=== PATIENT | male | born 1945 | race Two or more races ===

== ENCOUNTER 2025-06-25 09:04 | Inpatient (IN) | payer MEDICARE, MEDICAID ==
[~2025-06-25] VITALS: Ht 180.3 cm; Wt 71.4 kg
[2025-06-25 10:20] VITALS: PULSE 84; RESP 15; O2SAT 97
--- NOTE | 2025-06-25 11:18 | ED.PDOC ---
HPI Comments 79M BIBA w/ prior MHx of recent diagnosis of lung cancer and the c/c of generalized weakness. Pt reports on on being constipated, urinary retention and get's a jolt in his chest associated w/ generalized weakness s/p getting diagnosed w/ lung cancer. Denies any other symptoms at this time. Denies chills, fever, N/V/D, SOB, CP. Denies any other associated symptom's, modifiers, or recent injuries or sick contact at this time. Chief Complaint: General Weakness Time Seen by MD: 11:00 Reviewed Notes: Nurses Notes, Medications, Allergies Allergies: Coded Allergies: NO KNOWN ALLERGIES (Unverified , 06/25/25) Information Source: Patient Mode of Arrival: EMS Severity: Moderate Timing: Came on: Gradually Duration: Since onset Prehospital treatment: None Quality: Other (jolts) Onset: At Rest Cardiac Risk Factors: None PE Risk Factors: None History of: None Associated Signs and Symptoms: None Past Medical History PAST MEDICAL HISTORY: Cancer (Lung) Surgical History: Denies all surgeries Family History Family History: Reviewed,noncontributory to illness, Unknown Social History Smoker: Non-Smoker Alcohol: Denies ETOH Use Drugs: Denies Drug Use Lives In: Home Constitutional: reports: weakness; denies: chills, diaphoresis, fatigue, fever, malaise, sweats, others EENTM: denies: blurred vision, double vision, ear bleeding, ear discharge, ear drainage, ear pain, ear ringing, eye pain, eye redness, hearing loss, mouth pain, mouth swelling, nasal discharge, nose bleeding, nose congestion, nose pain, photophobia, tearing, throat pain, throat swelling, voice changes, others Respiratory: denies: cough, hemoptysis, orthopnea, SOB at rest, shortness of breath, SOB with excertion, stridor, wheezing, others Cardiovascular: reports: chest pain; denies: dizzy spells, diaphoresis, Dyspnea on exertion, edema, irregular heart beat, left arm pain, lightheadedness, palpitations, PND, syncope, others Gastrointestinal: reports: constipated; denies: abdomen distended, abdominal pain, blood streaked bowels, diarrhea, dysphagia, difficulty swallowing, hematemesis, melena, nausea, poor appetite, poor fluid intake, rectal bleeding, rectal pain, vomiting, others Genitourinary: reports: others (urinary retention); denies: burning, dysuria, flank pain, frequency, hematuria, incontinence, penile discharge, penile sore, pain, testicle pain, testicle swelling, urgency Neurological: denies: dizziness, fainting, headache, left sided numbness, left sided weakness, numbness, paresthesia, pre-existing deficit, right sided numbness, right sided weakness, seizure, speech problems, tingling, tremors, weakness, others Musculoskeletal: denies: back pain, gout, joint pain, joint swelling, muscle pain, muscle stiffness, neck pain, others Integumetry: denies: bruises, change in color, change in hair/nails, dryness, laceration, lesions, lumps, rash, wounds, others Allergic/Immunocompromised: denies: Difficulty Healing, Frequent Infections, Hives, Itching, others Hematologic/Lymphatic: denies: anemia, blood clots, easy bleeding, easy bruising, swollen glands, others Endocrine: denies: excessive hunger, excessive sweating, excessive thirst, excessive urination, flushing, intolerance to cold, intolerance to heat, unexplained weight gain, unexplained weight loss, others Psychiatric: denies: anxiety, bipolar disorder, depression, hopeless, panic disorder, schizophrenia, sleepless, suicidal, others All Other Systems: Reviewed and Negative Physical Exam General Appearance: Moderate Distress, Normal HEENT: Normal ENT Inspection, PERRL/EOMI, Pharynx Normal, TMs Normal Neck: Full Range of Motion, Non-Tender, Normal, Normal Inspection Respiratory: Chest Non-Tender, Decreased Breath Sounds, No Accessory Muscle Use, No Respiratory Distress, Rhonchi Cardiovascular: No Edema, No JVD, No Murmur, No Gallop, Normal Peripheral Pulses, Regular Rate/Rhythm Breast Exam: Deferred Gastrointestinal: No Organomegaly, No Pulsatile Mass, Normal Bowel Sounds, Soft, Suprapubic, Tenderness Genitalia: Deferred Pelvic: Deferred Rectal: Other (Patient unable to have a bowel movement) Extremities: Decreased range of motion, No calf tenderness, Normal capillary r efill, Normal inspection, Non-tender, No pedal edema Musculoskeletal : Apperance: Normal Neurologic: Alert, nursing service director II-XII nml as Tested, Depressed Affect, Motor Weakness, No Sensory Deficits Cerebellar Function: Normal Reflexes: Normal Skin: Dry, Normal Color, Warm Peripheral Pulses: 1+ carotid (R), 1+ carotid (L) Lymphatic: No Adenopathy EKG EKG : Pulse Rate (adult): 89 Corry: Normal Cardiac Rhythm: Afib Block: RBBB Hypertrophy: None ST: Normal Comments 1st EK AFIB, RBBB, LAFB Was a procedure done? 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 with the leg weakness X-Ray, Labs, Meds, VS Vital Signs Date Time Temp Pulse Resp B/P (MAP) Pulse Ox O2 Delivery O2 Flow Rate FiO2 06/25/25 13:36 95 16 136/95 06/25/25 11:19 89 06/25/25 10:20 97.5 84 15 150/90 (110) 97 97.5 06/25/25 10:20 84 15 97 Room Air* 0 21 06/25/25 09:15 89 06/25/25 09:09 98.2 96 16 153/107 100 98.2 Lab Test 06/25/25 11:38 Range/Units White Blood Count 9.6 4.4-10.8 10^3/uL Red Blood Count 5.03 4.5-5.90 10^6/uL Hemoglobin 14.5 13.5-17.5 g/dL Hematocrit 41.2 41.0-53.0 % Mean Corpuscular Volume 81.9 80.0-100.0 fL Mean Corpuscular Hemoglobin 28.9 28.0-32.0 pg Mean Corpuscular Hemoglobin Concent 35.2 32.0-36.0 g/dL Red Cell Distribution Width 15.1 H 11.8-14.3 % Platelet Count 367 140-450 10^3/uL Mean Platelet Volume 8.0 6.9-10.8 fL Neutrophils (%) (Auto) 80.6 H 37.0-80.0 % Lymphocytes (%) (Auto) 11.5 10.0-50.0 % Monocytes (%) (Auto) 6.6 0.0-12.0 % Eosinophils (%) (Auto) 1.0 0.0-7.0 % Basophils (%) (Auto) 0.3 0.0-2.0 % Neutrophils # (Auto) 7.7 1.6-8.6 10 ^3/uL Lymphocytes # (Auto) 1.1 0.4-5.4 10 ^3/uL Monocytes # (Auto) 0.6 0-1.3 10 ^3/uL Eosinophils # (Auto) 0.1 0-0.8 10 ^3/uL Basophils # (Auto) 0 0-0.2 10 ^3/uL Nucleated Red Blood Cells 0.1 % Sodium Level 135 L 136-145 mmol/L Potassium Level 4.5 3.5-5.1 mmol/L Chloride Level 100 98-107 mmol/L Carbon Dioxide Level 24 20-31 mmol/L Anion Gap 11 5-15 Blood Urea Nitrogen 15 9-23 mg/dL Creatinine 0.67 L 0.700-1.30 mg/dL Glomerular Filtration Rate Calc 95 >90 mL/min BUN/Creatinine Ratio 22.4 H 10.0-20.0 Serum Glucose 94 74-106 mg/dL Calcium Level 9.3 8.7-10.4 mg/dL Magnesium Level 2.2 1.6-2.6 mg/dL Total Bilirubin 1.0 0.2-1.0 mg/dL Aspartate Amino Transferase (AST) 20 13-40 U/L Alanine Aminotransferase (ALT) 19 7-40 U/L Alkaline Phosphatase 176 H 46-116 U/L Total Protein 7.2 5.7-8.2 g/dL Albumin 4.1 3.2-4.8 g/dL Current Medications Medications (Trade) Dose Ordered Sig/Romeo Route Start Time Stop Time Status Last Admin Sodium Chloride 1,000 ml @ 500 mls/hr Q2H ONCE IVB 06/25/25 11:15 06/25/25 13:14 DC 06/25/25 11:23 Sodium Chloride 1,000 ml @ 150 mls/hr Q6H40M ONCE IV 06/25/25 11:15 06/25/25 17:54 06/25/25 11:23 Sodium Biphosphate/ Sodium Phosphate 133 ml ONCE ONCE WA 06/25/25 11:15 06/25/25 11:16 DC 06/25/25 11:32 Morphine Sulfate 3 mg ONCE ONCE IV 06/25/25 13:30 06/25/25 13:31 DC 06/25/25 13:36 Ondansetron HCl (Zofran) 4 mg ONCE ONCE IV 06/25/25 13:30 06/25/25 13:31 DC 06/25/25 13:35 X-Ray, Labs, Meds, VS Comment Course in the emergency department eventful patient came in with a history of lung cancer seen not treated and generalized weakness patient can not urinate and neck and not have a bowel movement and also he can not walk from leg we akness from metastasis to lumbar spine CBC is normal Magnesium is 2.2 CMP is negative The EKG shows atrial fibrillation at 89 with a right bundle-branch block and left anterior fascicular block The chest x-ray shows right upper lobe opacity left retrocardiac opacity Patient will be admitted for further care Time of 1ST Reevaluation: 11:30 Reevaluation 1ST: Unchanged Patient Education/Counseling: Diagnosis, Treatment, Prognosis Family Education/Counseling: No Family Present SEPSIS Sepsis Screen Date sepsis recognized/suspect: Jun 25, 2025 Time Sepsis recognized/suspect: 908 Recent Procedure: No On Antibiotic Therapy: No Respiratory Rate >20: No Heart Rate >90: Yes Temp<36 C (96.8 F) or >38.3 C: No SBP <90 or MAP <65 mmHG: No New Acute Mental Status Change: No Is the patient on CPAP, BIPAP,: No Physician Orders Chest Portable (06/25/25 11:10) Heplock Iv (06/25/25 11:10) Blood Pressure (06/25/25 11:10) Sodium Chloride 0.9% (06/25/25 11:15) Urinalysis (06/25/25 11:10) Insert Mcconnell Catheter QSHIFT (06/25/25 11:10) Vital Signs Date Time Temp Pulse Resp B/P (MAP) Pulse Ox O2 Delivery O2 Flow Rate FiO2 06/25/25 13:36 95 16 136/95 06/25/25 11:19 89 06/25/25 10:20 97.5 84 15 150/90 (110) 97 97.5 06/25/25 10:20 84 15 97 Room Air* 0 21 06/25/25 09:15 89 06/25/25 09:09 98.2 96 16 153/107 100 98.2 Laboratory Tests Test 06/25/25 11:38 White Blood Count 9.6 10^3/uL (4.4-10.8) Medications Medications Dose Ordered Sig/Romeo Route Start Time Stop Time Status Last Admin Dose Admin Morphine Sulfate 3 mg ONCE ONCE IV 06/25/25 13:30 06/25/25 13:31 DC 06/25/25 13:36 Ondansetron HCl 4 mg ONCE ONCE IV 06/25/25 13:30 06/25/25 13:31 DC 06/25/25 13:35 Sodium Biphosphate/ Sodium Phosphate 133 ml ONCE ONCE WA 06/25/25 11:15 06/25/25 11:16 DC 06/25/25 11:32 Sodium Chloride 1,000 ml @ 150 mls/hr Q6H40M ONCE IV 06/25/25 11:15 06/25/25 17:54 06/25/25 11:23 Sodium Chloride 1,000 ml @ 500 mls/hr Q2H ONCE IVB 06/25/25 11:15 06/25/25 13:14 DC 06/25/25 11:23 Departure 1 Departure Time of Disposition: 14:47 Impression: Primary Impression: Lung cancer metastatic to bone Additional Impressions: Generalized weakness Urinary retention Disposition: ADMITTED INPATIENT Admit to: Tele Condition: Guarded Critical Care Note Critical Care Time?: No Stability Stability form required: Yes Heart Score Heart Score: Heart Score Response (Comments) Value History N/A 0 EKG Repolarization Disturb 1 Age >65 2 Risk Factors 1 or 2 risk factors 1 Troponin N/A 0 Total 4 I personally scribed for APOORVA CHINO MD ([email or web address]) on 06/25/25 at 11:18. Electronically submitted by Richard Hill ([email or web address]). I personally scribed for APOORVA CHINO MD ([email or web address]) on 06/25/25 at 11:19. Electronically submitted by Richard Hill ([email or web address]). APOORVA CHINO MD Jun 25, 2025 11:18
[2025-06-25] MEDS: SODIUM CHLORIDE 0.9% 1,000 ML IVB ONE (11:23)
[2025-06-25] MEDS: SODIUM CHLORIDE 0.9% 1,000 ML IV ONE (11:23)
[2025-06-25] MEDS: FLEET MINERAL OIL ENEMA 133 ML PR ONE (11:32)
--- NOTE | 2025-06-25 11:49 | DVH ---
EXAM: XY CHEST PORTABLE Indication: LUNG CA Technique: Single frontal view of the chest was obtained Comparison: CT CHEST WITHOUT on DOS: 06/16/25 FINDINGS: Lines and Tubes: None Lungs: Right upper lung opacity which may reflect scarring. Left retrocardiac opacity. Pleura: No effusion. No pneumothorax. Cardiomediastinal contours: Unremarkable. Atherosclerotic vascular calcifications of the thoracic aorta are noted. Bones: No acute osseous abnormality. IMPRESSION: Right upper lung opacity which may reflect scarring. Left retrocardiac opacity.
[2025-06-25 11:56] LABS: Hematocrit 41.2 % (41.0-53.0); Hemoglobin 14.5 g/dL (13.5-17.5); Mean Corpuscular Hemoglobin 28.9 pg (28.0-32.0); Mean Corpuscular Volume 81.9 fL (80.0-100.0); Nucleated Red Blood Cells % 0.1 %
[2025-06-25 12:20] LABS: Alanine Aminotransferase 19 U/L (7-40); Albumin 4.1 g/dL (3.2-4.8); Anion Gap 11 (5-15); BUN/Creatinine Ratio 22.4 (10.0-20.0); Blood Urea Nitrogen 15 mg/dL (9-23); Calcium 9.3 mg/dL (8.7-10.4); Carbon Dioxide 24 mmol/L (20-31); Chloride 100 mmol/L (98-107); Glucose 94 mg/dL (74-106); Magnesium 2.2 mg/dL (1.6-2.6); Potassium 4.5 mmol/L (3.5-5.1); Total Protein 7.2 g/dL (5.7-8.2)
[2025-06-25 12:21] LABS: Bilirubin, Total 1.0 mg/dL (0.2-1.0)
[2025-06-25 12:22] LABS: Alkaline Phosphatase 176 U/L (46-116); Sodium 135 mmol/L (136-145)
[2025-06-25] MEDS: ONDANSETRON HCL 4 MG/2 ML VIAL IV ONE (13:35)
[2025-06-25] MEDS: MORPHINE SULFATE 4 MG/ML SYR/VIAL IV ONE (13:36)
--- NOTE | 2025-06-25 14:36 | ECG ---
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
[2025-06-25 15:20] LABS: Urine Protein, UAD TRACE (Negative)
[2025-06-25] MEDS ORDERED: ONDANSETRON HCL 4 MG/2 ML VIAL IV PRN (16:45)
--- NOTE | 2025-06-25 16:49 | DVHHP2 ---
History of Present Illness Reason for Visit: Weakness History of Present Illness Lex Chan is a 79-year-old male with past medical history of lung cancer diagnosed 2 weeks ago, AFib on Eliquis, and appendectomy who presents to the ED weakness, constipation, and urinary retention that started 3 days ago. He is also reporting that he has back pain and was told by [facility] that he has a nodule versus tumor on his back as well as his lung. Reports that his bilateral lower extremities have been numb and weak. He reports he does not use a walker or cane however his uses a walker and he started using that and states that he is now unable to walk. He also reports that he went to [facility] was diagnosed recently with lung cancer then was sent a referral to [facility] in [place] followed up with demanded blood tests and imaging. Is set to go back for a follow up on July 05. 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 He reports that he has been compliant with his Eliquis for his AFib. He also endorses that in his history he was advised to get a pacemaker however received a 2nd opinion and that director of global talent advised him that he did not need a pacemaker placed. Patient denies any recent trauma or injury, recent sick contacts, recent travels, recent ingestion of spoiled food, chest pain, shortness of breath, fever, chills, dizziness, abdominal pain, nausea, vomiting, or diarrhea. Patient's Fara at the bedside. Patient's also states that he has been taking Dilaudid p.o. 2 mg every 6 hours as needed for pain in his back. Cardiovascular: AFIB Past Medical History ? Lung cancer Past Surgical History: Appendectomy Family History: Cancer, Other (Brother from lymph node cancer) Smoke: No ALCOHOL: none Drugs: None Lives: with Family Domestic Violence: Neg Review of Systems Constitutional: Yes: Weakness Gastrointestinal: Constipation Musculoskeletal: leg pain Neurological: Numbness Allergies: Coded Allergies: NO KNOWN ALLERGIES (Unverified , 06/25/25) Exam Vital Signs Vital Signs Date Time Temp Pulse Resp B/P (MAP) Pulse Ox O2 Delivery O2 Flow Rate FiO2 06/25/25 14:50 94 25 151/88 06/25/25 14:50 98 06/25/25 10:20 97.5 97.5 06/25/25 10:20 Room Air* 0 21 General Appearance: Alert, Oriented X3, Cooperative, No acute distress HEENT: Atraumatic, PERRLA, EOMI, Mucous membr. moist/pink Respiratory: Normal air movement Cardiovascular: Regular rate, Normal S1, Normal S2 Abdominal: Soft Neuro: Normal speech, Normal tone, Sensation intact Psych/Mental Status: Mental status NL, Mood NL Labs/Xrays Labs Test 06/25/25 14:57 06/25/25 11:38 Range/Units Urine Color Yellow Yellow Urine Clarity Clear Clear Urine pH 6.0 5.0-9.0 Urine Specific [place] 1.027 1.001-1.035 Urine Protein Trace H Negative Urine Ketones 1+ H Negative Urine Blood Trace H Negative /uL Urine Nitrite Negative Negative Urine Bilirubin Negative Negative Urine Urobilinogen 2 H Negative mg/dL Urine Leukocyte Esterase Negative Negative /uL Urine RBC 23 0 - 3 /hpf Urine Microscopic WBC 1 0-3 /HPF Urine Squamous Epithelial Cells None seen <5 /hpf Urine Bacteria Few H None Seen /hpf Urine Mucus Few None Seen Urine Sperm Present None Seen /hpf Urine Glucose Normal Normal mg/dL White Blood Count 9.6 4.4-10.8 10^3/uL Red Blood Count 5.03 4.5-5.90 10^6/uL Hemoglobin 14.5 13.5-17.5 g/dL Hematocrit 41.2 41.0-53.0 % Mean Corpuscular Volume 81.9 80.0-100.0 fL Mean Corpuscular Hemoglobin 28.9 28.0-32.0 pg Mean Corpuscular Hemoglobin Concent 35.2 32.0-36.0 g/dL Red Cell Distribution Width 15.1 H 11.8-14.3 % Platelet Count 367 140-450 10^3/uL Mean Platelet Volume 8.0 6.9-10.8 fL Neutrophils (%) (Auto) 80.6 H 37.0-80.0 % Lymphocytes (%) (Auto) 11.5 10.0-50.0 % Monocytes (%) (Auto) 6.6 0.0-12.0 % Eosinophils (%) (Auto) 1.0 0.0-7.0 % Basophils (%) (Auto) 0.3 0.0-2.0 % Neutrophils # (Auto) 7.7 1.6-8.6 10 ^3/uL Lymphocytes # (Auto) 1.1 0.4-5.4 10 ^3/uL Monocytes # (Auto) 0.6 0-1.3 10 ^3/uL Eosinophils # (Auto) 0.1 0-0.8 10 ^3/uL Basophils # (Auto) 0 0-0.2 10 ^3/uL Nucleated Red Blood Cells 0.1 % Sodium Level 135 L 136-145 mmol/L Potassium Level 4.5 3.5-5.1 mmol/L Chloride Level 100 98-107 mmol/L Carbon Dioxide Level 24 20-31 mmol/L Anion Gap 11 5-15 Blood Urea Nitrogen 15 9-23 mg/dL Creatinine 0.67 L 0.700-1.30 mg/dL Glomerular Filtration Rate Calc 95 >90 mL/min BUN/Creatinine Ratio 22.4 H 10.0-20.0 Serum Glucose 94 74-106 mg/dL Calcium Level 9.3 8.7-10.4 mg/dL Magnesium Level 2.2 1.6-2.6 mg/dL Total Bilirubin 1.0 0.2-1.0 mg/dL Aspartate Amino Transferase (AST) 20 13-40 U/L Alanine Aminotransferase (ALT) 19 7-40 U/L Alkaline Phosphatase 176 H 46-116 U/L Total Protein 7.2 5.7-8.2 g/dL Albumin 4.1 3.2-4.8 g/dL EXAM: XY CHEST PORTABLE Indication: LUNG CA Technique: Single frontal view of the chest was obtained Comparison: CT CHEST WITHOUT on DOS: 06/16/25 FINDINGS: Lines and Tubes: None Lungs: Right upper lung opacity which may reflect scarring. Left retrocardiac opacity. Pleura: No effusion. No pneumothorax. Cardiomediastinal contours: Unremarkable. Atherosclerotic vascular calc ifications of the thoracic aorta are noted. Bones: No acute osseous abnormality. IMPRESSION: Right upper lung opacity which may reflect scarring. Left retrocardiac opacity. SEPSIS Sepsis Screen Date sepsis recognized/suspect: Jun 25, 2025 Time Sepsis recognized/suspect: 908 Recent Procedure: No On Antibiotic Therapy: No Respiratory Rate >20: No Heart Rate >90: Yes Temp<36 C (96.8 F) or >38.3 C: No SBP <90 or MAP <65 mmHG: No New Acute Mental Status Change: No Is the patient on CPAP, BIPAP,: No Physician Orders Chest Portable (06/25/25 11:10) Heplock Iv (06/25/25 11:10) Blood Pressure (06/25/25 11:10) Sodium Chloride 0.9% (06/25/25 11:15) Insert Mcconnell Catheter QSHIFT (06/25/25 11:10) Vital Signs Date Time Temp Pulse Resp B/P (MAP) Pulse Ox O2 Delivery O2 Flow Rate FiO2 06/25/25 14:50 94 25 151/88 06/25/25 14:50 93 25 151/88 (109) 98 06/25/25 13:36 95 16 136/95 06/25/25 12:49 93 15 136/95 (109) 97 06/25/25 11:19 89 06/25/25 10:20 97.5 84 15 150/90 (110) 97 97.5 06/25/25 10:20 84 15 97 Room Air* 0 21 06/25/25 09:15 89 06/25/25 09:09 98.2 96 16 153/107 100 98.2 Laboratory Tests Test 06/25/25 11:38 White Blood Count 9.6 10^3/uL (4.4-10.8) Medications Medications Dose Ordered Sig/Romeo Route Start Time Stop Time Status Last Admin Dose Admin Morphine Sulfate 3 mg ONCE ONCE IV 06/25/25 13:30 06/25/25 13:31 DC 06/25/25 13:36 3 MG Ondansetron HCl 4 mg ONCE ONCE IV 06/25/25 13:30 06/25/25 13:31 DC 06/25/25 13:35 4 MG Sodium Biphosphate/ Sodium Phosphate 133 ml ONCE ONCE ND 06/25/25 11:15 06/25/25 11:16 DC 06/25/25 11:32 133 ML Sodium Chloride 1,000 ml @ 150 mls/hr Q6H40M ONCE IV 06/25/25 11:15 06/25/25 17:54 06/25/25 11:23 150 MLS/HR Sodium Chloride 1,000 ml @ 500 mls/hr Q2H ONCE IVB 06/25/25 11:15 06/25/25 13:14 DC 06/25/25 11:23 500 MLS/HR Assessment/Plan Assessment/Plan Assessment Generalized weakness Transaminitis Acute Urinary retention ? Lung cancer Intractable back pain likely from lung cancer possible Mets ? Constipation Bilateral lower extremity numbness History of appendectomy History of AFib on Eliquis Plan Admit to med surge Antiemetics Pain management Sodium phos NS 2 L given ED Mcconnell cath placed in ED BP management Magnesium Chest x-ray EKG CT head ordered KUB Bilateral lower extremity venous ultrasound Diet Home medications reconciled DVT prophylaxis-SCDs PUD prophylaxis-not indicated no history of GERD or GI bleed Discussed plan of care with patient and nurse Consider Heme-Onc Consider palliative care [id number] Advanced care planning discussed [id number] Preventive counseling healthy eating habits, physical activity, and regular checkups Plan discussed with: Patient, Spouse Date of Service: Jun 25, 2025 Billing Provider: NICO LEDEZMA Common Visit Codes: [id number] INP/OBS CARE (HIGH) Secondary Visit Codes: [id number] COUNSELING IND, [id number] CARE PLAN 30 MINUTES NICO LEDEZMA Jun 25, 2025 16:49
[2025-06-25] MEDS: SODIUM CHLORIDE 0.9% 1,000 ML IV SCH (17:25)
[2025-06-25] MEDS ORDERED: HYDR2TAB2 PO (17:30)
[2025-06-25] MEDS ORDERED: APIX5TAB PO (17:30)
--- NOTE | 2025-06-25 17:46 | DVH ---
CLINICAL HISTORY: Weakness TECHNIQUE: Helical scanning was performed of the head from the skull base to the vertex. Multiplanar reconstructions were performed. This exam was performed according to our departmental dose optimization program. Up-to-date CT equipment and radiation dose reduction techniques are utilized as appropriate. CTDI 54 DLP 1079 COMPARISON: None FINDINGS: There is no evidence for acute intracranial hemorrhage, acute ischemic changes, mass, mass effect, or extra-axial fluid collection. There is no hydrocephalus or midline shift. There is no effacement of the cerebral sulci and basal subarachnoid cisterns. The cook-white matter differentiation is well maintained. There is mild brain volume loss and [id number] chronic small vessel ischemic change. The imaged paranasal sinuses are clear. IMPRESSION: NO ACUTE INTRACRANIAL ABNORMALITY SEEN.
--- NOTE | 2025-06-25 17:51 | DVH ---
Exam: XY KUB ABDOMEN SINGLE VIEW Indication: constipation Comparison: None Technique: 2 radiographic views of the abdomen. Findings: Gas distention of large bowel and scattered gas throughout nondilated small bowel loops. [id number] retained stool in the colon. Osseous structures are grossly intact. Mild lumbar spondylosis. Visualized lung bases are clear. Impression: 1. Gas distention of predominantly large bowel which could be related to ileus.
[2025-06-25 18:52] LABS: COVID19 ANTIGEN SOFIA FIA NEGATIVE (NEGATIVE)
[2025-06-25 19:30] VITALS: PULSE 82; RESP 14; O2SAT 96
[2025-06-25] MEDS: DOCUSATE SOD 100 MG CAP PO ONE (20:27)
--- NOTE | 2025-06-25 21:10 | DVH ---
EXAM: US BILAT LOWER DVT HISTORY: pain COMPARISON: None available at the time of dictation TECHNIQUE: Duplex Doppler evaluation of the deep venous systems of both lower extremities from the common femoral veins to the popliteal veins including color Doppler and spectral/pulsed waveform analysis was performed. FINDINGS: RIGHT SIDE: The common femoral vein demonstrates appropriate compressibility and waveform variability. There is compressibility/patency of the great saphenous vein at the proximal thigh. The femoral vein demonstrates appropriate compressibility and waveform variability. The deep femoral vein demonstrates appropriate compressibility and waveform variability. The popliteal vein demonstrates appropriate compressibility and waveform variability. There is normal compressibility at the tibioperoneal trunk. LEFT SIDE: The common femoral vein demonstrates appropriate compressibility and waveform variability. There is compressibility/patency of the great saphenous vein at the proximal thigh. The femoral vein demonstrates appropriate compressibility and waveform variability. The deep femoral vein demonstrates appropriate compressibility and waveform variability. The popliteal vein demonstrates appropriate compressibility and waveform variability. There is normal compressibility at the tibioperoneal trunk. IMPRESSION: 1. No right or left femoropopliteal venous thrombosis. If clinical concern/symptoms persist or worsen, short-interval follow-up study is suggested.
[2025-06-25 22:04] VITALS: RESP 18
[2025-06-25] MEDS: APIXABAN 5 MG TAB PO SCH (22:55)
[2025-06-26] VITALS (7 sets, daily range): BP systolic 118–154; BP diastolic 75–88; PULSE 76–103; RESP 18–21; TEMP 97.5–98.5; O2SAT 94–97
[2025-06-26] MEDS: ACETAMINOPHEN 325 MG TAB PO PRN (04:01)
[2025-06-26 05:46] LABS: Hematocrit 37.6 % (41.0-53.0); Hemoglobin 13.0 g/dL (13.5-17.5); Mean Corpuscular Hemoglobin 28.5 pg (28.0-32.0); Mean Corpuscular Volume 82.5 fL (80.0-100.0); Nucleated Red Blood Cells % 0.0 %
[2025-06-26 06:16] LABS: Alanine Aminotransferase 16 U/L (7-40); Albumin 3.5 g/dL (3.2-4.8); Anion Gap 7 (5-15); BUN/Creatinine Ratio 23.2 (10.0-20.0); Blood Urea Nitrogen 13 mg/dL (9-23); Carbon Dioxide 26 mmol/L (20-31); Chloride 103 mmol/L (98-107); Glucose 89 mg/dL (74-106); Potassium 4.0 mmol/L (3.5-5.1); Total Protein 6.1 g/dL (5.7-8.2)
[2025-06-26 06:20] LABS: Alkaline Phosphatase 145 U/L (46-116); Calcium 8.5 mg/dL (8.7-10.4); Sodium 136 mmol/L (136-145)
[2025-06-26 06:29] LABS: Bilirubin, Total 0.9 mg/dL (0.2-1.0)
[2025-06-26] MEDS: DOCUSATE SOD 100 MG CAP PO SCH (09:30)
--- NOTE | 2025-06-26 12:30 | DVHPN2 ---
Reviewed: Care Plan, H&P, Labs, Medications, Previous Orders, Radiology Changes from previous H/P or p: No Changes Gastrointestinal: Constipation Musculoskeletal: leg pain Objective Vitals Vital Signs Date Time Temp Pulse Resp B/P (MAP) Pulse Ox O2 Delivery O2 Flow Rate FiO2 06/26/25 09:00 98.3 103 18 121/88 (99) 96 98.3 06/26/25 08:00 Room Air* 0 21 Intake/Output Intake and Output 06/26/25 07:00 Intake Total 1340 ml Output Total 1400 ml Balance -60 ml Intake Oral 200 ml IV Total 1140 ml Output Urine Total 1400 ml Medications Current Medications Medications Dose Ordered Sig/Romeo Route Start Time Stop Time Status Last Admin Dose Admin Sodium Chloride 1,000 ml @ 60 mls/hr [id number] IV 06/25/25 16:45 06/26/25 12:20 60 MLS/HR Ondansetron HCl 4 mg Q4HP PRN IV 06/25/25 16:45 Acetaminophen 650 mg Q6HP PRN PO 06/25/25 16:45 06/26/25 12:20 650 MG Apixaban 5 mg BID PO 06/25/25 22:00 06/26/25 09:30 5 MG Hydromorphone HCl 1 mg Q8HPRN PRN PO 06/25/25 19:00 06/26/25 09:30 1 MG Docusate Sodium 100 mg BID PO 06/26/25 10:00 06/26/25 09:30 100 MG Laboratory Results Laboratory Tests 06/26/25 05:22 Chemistry Test 06/26/25 05:22 Albumin 3.5 g/dL (3.2-4.8) Calcium Level 8.5 mg/dL (8.7-10.4) L Total Protein 6.1 g/dL (5.7-8.2) LFT Test 06/26/25 05:22 Alanine Aminotransferase (ALT) 16 U/L (7-40) Alkaline Phosphatase 145 U/L (46-116) H Aspartate Amino Transferase (AST) 18 U/L (13-40) Total Bilirubin 0.9 mg/dL (0.2-1.0) Urinalysis Test 06/25/25 14:57 Urine Color Yellow (Yellow) Urine Clarity Clear (Clear) Urine pH 6.0 (5.0-9.0) Urine Specific [place] 1.027 (1.001-1.035) Urine Protein Trace (Negative) H Urine Ketones 1+ (Negative) H Urine Blood Trace /uL (Negative) H Urine Nitrite Negative (Negative) Urine Bilirubin Negative (Negative) Urine Urobilinogen 2 mg/dL (Negative) H Urine Leukocyte Esterase Negative /uL (Negative) Urine RBC 23 /hpf (0 - 3) Urine Microscopic WBC 1 /HPF (0-3) Urine Squamous Epithelial Cells None seen /hpf (<5) Urine Bacteria Few /hpf (None Seen) H Urine Mucus Few (None Seen) Urine Sperm Present /hpf (None Seen) Urine Glucose Normal mg/dL (Normal) Labs and/or images reviewed: Labs reviewed by me, Image(s) reviewed by me Assessment/Plan Assessment/Plan Acute generalized weakness History of lung cancer diagnosed two weeks ago at [facility] being treated at [facility] Acute on chronic back pain: CT LS spine rule out Mets CT chest abdomen pelvis without contrast ruled out mets On Eliquis Acute urinary retention: Mcconnell Constipation: MiraLax Acute bilateral lower extremity weakness and pain rule out spine Mets Flu Test negative COVID test negative Time spent 70 minutes Advanced care planning time 20 minutes Patient is full code Plan discussed with: Patient My Orders Orders - MONICA VICENTE MD Procedure Category Date Status Time Chst Ab Pel Wo Con-No CT 06/26/25 Verified Iv/Oral 12:21 Ls Spine Wo Contrast CT 06/26/25 Verified 12:21 Date of Service: Jun 26, 2025 Billing Provider: MONICA VICENTE MD Common Visit Codes: [id number] CARE 30-74 MIN MONICA VICENTE MD Jun 26, 2025 12:30
[2025-06-26] MEDS: HYDROmorphone HCL 2 MG/ML VL/or syr IV PRN (15:08)
--- NOTE | 2025-06-26 15:14 | DVH ---
EXAM: CT CHST AB PEL WO CON-NO IV/ORAL INDICATION: Lung cancer TECHNIQUE: Volumetric multidetector CT images of the chest, abdomen and pelvis were obtained after the administration of IV contrast. All CT scans at this facility use dose modulation, iterative reconstruction, and/or weight based dosing when appropriate to reduce radiation dose to as low as reasonably achievable. COMPARISON: XY KUB ABDOMEN SINGLE VIEW on DOS: 06/25/25 FINDINGS: LOWER NECK: Unremarkable LYMPH NODES/MEDIASTINUM: No abnormal lymph nodes by CT size criteria. CARDIOVASCULAR: Normal cardiac size. No pericardial effusion. No aneurysmal dilatation of the great vessels. Coronary artery calcifications. LUNG PARENCHYMA/PLEURAL SPACE: Small left-sided pleural effusion with suspected consolidation of the left lower lobe. Indeterminate area of spiculated mass with internal bronchiolectasis versus scarring measuring 3.5 x 1.3 x 2.7 cm in the right upper lobe. Atelectasis and/or scarring in the right lung base. Minimal tracheal secretions layering in the proximal right mainstem bronchus. CHEST WALL: Minimal left gynecomastia LIVER: Normal hepatic size without suspicious focal lesion. GALLBLADDER/BILIARY TREE: No cholelithiasis. SPLEEN: Unremarkable. PANCREAS: Unremarkable. ADRENAL GLANDS: Unremarkable KIDNEYS: No hydronephrosis. benign fluid attenuating cysts of the left posterior kidney. BLADDER: Mcconnell catheter in place. PELVIC ORGANS: Unremarkable. BOWEL/MESENTERY: No CT evidence of bowel obstruction. Mild stool burden. ASCITES: Absent LYMPHADENOPATHY: No pathologically enlarged lymph nodes by CT size criteria VASCULATURE: Infrarenal abdominal aortic aneurysm measuring up to 2.9-3 cm. 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 ABDOMINAL WALL: Small fat containing left inguinal hernia MUSCULOSKELETAL: Significant pathologic lytic appearance of the posterior aspect of the S1 vertebral body, L4, T5, T6. Complete suspected osseous erosion of the posterior spinous process of T5. Additional osseous involvement of T5 and T6 pedicles. Significant abnormal soft tissue mass involvement of the spinal canal at T5 and T6. Multifocal degenerative change of the visualized spine. Left S1 vertebral body lesion measures 4.8 x 3.5 cm in axial dimension and potentially encases of the left exiting S1 sacral foramina. IMPRESSION: 1. Significant pathologic lytic appearance of the posterior aspect of the S1 vertebral body, L4, T5, T 2. Complete suspected osseous erosion of the posterior spinous process of T5. Additional osseous involvement of T5 and T6 pedicles. 3. Significant abnormal soft tissue mass involvement of the spinal canal at T5 and T 4. Small left-sided pleural effusion with suspected consolidation of the left lower lobe. 5. Indeterminate area of pleural-parenchymal scarring and/or posttreatment change in the periphery of the right upper lobe. 6. Infrarenal abdominal aortic aneurysm measuring up to 2.9-3 cm. 7. Indeterminate area of spiculated mass with internal bronchiolectasis versus scarring measuring 3.5 x 1.3 x 2.7 cm in the right upper lobe.
--- NOTE | 2025-06-26 15:38 | DVH ---
CLINICAL HISTORY: History of lung cancer rule out mets TECHNIQUE: CT of the lumbar spine was performed without intravenous contrast. This exam was performed according to our departmental dose optimization program. Up-to-date CT equipment and radiation dose reduction techniques are utilized as appropriate. CTDI: 24.65 DLP: 914.99 WID: COMPARISON: CT SPINE LUMBAR WITHOUT on DOS: 06/16/25 FINDINGS: Bony demineralization. There are 5 [id number] lumbar type vertebral bodies. Minimal anterolisthesis L4-L5 and minimal retrolisthesis at L4-L5. Very mild height loss compression fracture of the mid and right aspect of the L4 vertebral body and in the mid and left aspect of the S1 vertebral body, pathologic. Vertebral body heights are otherwise maintained. There are lytic osseous metastases in the L4 vertebral body, and in the left S1 and S2 vertebral bodies extending into the left sacral ala. There is slight soft tissue tumor extension into the superior left S1-S2 neural foramen. Multilevel lumbar spondylosis with moderate degenerative disc space narrowing at L4-L5 and mild disc space narrowing at L3-L4. Multilevel degenerative neural foraminal stenosis secondary to disc osteophyte complexes and facet hypertrophy as well as ligamentum flavum thickening greatest up to a moderate degree bilaterally at L4-L5 and mild at multiple levels . Disc osteophyte complex contributes to mild spinal stenosis at L4-L5. The posterior paraspinal soft tissues are intact. See separately dictated same day CT chest abdomen pelvis for discussion of additional findings. IMPRESSION: 1. 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 2. Mild pathologic compression fractures of the mid and right aspect of L4 vertebral body and the mid and left aspect of the S1 vertebral body. 3. Mild neural foraminal extension of tumor in the superior aspect of the left S1-S2 neural foramen. 4. Multilevel lower thoracic and lumbar spondylosis. 5. Multilevel degenerative neural foraminal and spinal stenosis Up to moderate bilateral neural foraminal narrowing L4-L5 and mild spinal stenosis at L4-L5.
[2025-06-26] MEDS: POLYETHYLENE GLYCOL 17 GM PWDR PO ONE (16:01)
[2025-06-27] VITALS (8 sets, daily range): BP systolic 120–147; BP diastolic 11–98; PULSE 67–94; RESP 17–20; TEMP 97.3–98.8; O2SAT 92–97
--- NOTE | 2025-06-27 08:26 | DVHPN2 ---
Reviewed: Care Plan, H&P, Labs, Medications, Previous Orders, Radiology Changes from previous H/P or p: No Changes Gastrointestinal: Constipation Musculoskeletal: leg pain Objective Vitals Vital Signs Date Time Temp Pulse Resp B/P (MAP) Pulse Ox O2 Delivery O2 Flow Rate FiO2 06/27/25 05:35 89 17 133/79 06/27/25 05:00 98.8 96 98.8 06/26/25 20:00 Room Air* 0 21 Intake/Output Intake and Output 06/27/25 07:00 Intake Total 2010 ml Output Total 1600 ml Balance 410 ml Intake Oral 2010 ml Output Urine Total 1600 ml Medications Current Medications Medications Dose Ordered Sig/Romeo Route Start Time Stop Time Status Last Admin Dose Admin Sodium Chloride 1,000 ml @ 60 mls/hr [id number] IV 06/25/25 16:45 06/26/25 12:20 60 MLS/HR Ondansetron HCl 4 mg Q4HP PRN IV 06/25/25 16:45 Acetaminophen 650 mg Q6HP PRN PO 06/25/25 16:45 06/26/25 12:20 650 MG Apixaban 5 mg BID PO 06/25/25 22:00 06/26/25 21:28 5 MG Docusate Sodium 100 mg BID PO 06/26/25 10:00 06/26/25 21:28 100 MG Polyethylene Glycol 17 gm DAILYPRN PRN PO 06/27/25 10:00 Hydromorphone HCl 2 mg Q4HPRN PRN IV 06/26/25 13:45 06/27/25 05:05 2 MG Laboratory Results Laboratory Tests 06/26/25 05:22 Urinalysis Test 06/25/25 14:57 Urine Color Yellow (Yellow) Urine Clarity Clear (Clear) Urine pH 6.0 (5.0-9.0) Urine Specific [place] 1.027 (1.001-1.035) Urine Protein Trace (Negative) H Urine Ketones 1+ (Negative) H Urine Blood Trace /uL (Negative) H Urine Nitrite Negative (Negative) Urine Bilirubin Negative (Negative) Urine Urobilinogen 2 mg/dL (Negative) H Urine Leukocyte Esterase Negative /uL (Negative) Urine RBC 23 /hpf (0 - 3) Urine Microscopic WBC 1 /HPF (0-3) Urine Squamous Epithelial Cells None seen /hpf (<5) Urine Bacteria Few /hpf (None Seen) H Urine Mucus Few (None Seen) Urine Sperm Present /hpf (None Seen) Urine Glucose Normal mg/dL (Normal) Labs and/or images reviewed: Labs reviewed by me, Image(s) reviewed by me Assessment/Plan Assessment/Plan Acute generalized weakness History of lung cancer diagnosed two weeks ago at [facility] being treated at [facility] Acute on chronic back pain: CT LS spine shows extensive Mets L4 T5 S1 spanning the symptoms of bilateral lower extremity pain weakness and numbness CT chest abdomen pelvis without shows left lower lobe pneumonia and mild pleural effusion Rocephin and azithromycin IV AFib On Eliquis Acute urinary retention: Mcconnell Constipation: MiraLax Flu Test negative COVID test negative Physical therapy ordered Needs wheelchair at the time of discharge Time spent 50 minutes Advanced care planning time 20 minutes Patient is full code Plan discussed with: Patient My Orders Orders - MONICA VICENTE MD Procedure Category Date Status Time Chst Ab Pel Wo Con-No CT 06/26/25 Resulted Iv/Oral 12:21 Ls Spine Wo Contrast CT 06/26/25 Resulted 12:21 Polyethylene Glycol PHA 06/27/25 In Process 17g Powder (Miralax 10:00 Hydromorphone PHA 06/26/25 In Process Injection (Dilaudid 13:45 Date of Service: Jun 27, 2025 Billing Provider: MONICA VICENTE MD Common Visit Codes: [id number] INP/OBS CARE(HIGH) MONICA VICENTE MD Jun 27, 2025 08:26
[2025-06-27] MEDS ORDERED: POLYETHYLENE GLYCOL 17 GM PWDR PO PRN (10:00)
[2025-06-27] MEDS: AZITHROMYCIN 500MG/ 250ML 250 ML IV SCH (10:25)
[2025-06-28] VITALS (7 sets, daily range): BP systolic 118–143; BP diastolic 81–98; PULSE 68–89; RESP 16–21; TEMP 36.6; O2SAT 94–97
--- NOTE | 2025-06-28 10:36 | DVHPN2 ---
Reviewed: Care Plan, H&P, Labs, Medications, Previous Orders, Radiology Changes from previous H/P or p: No Changes Gastrointestinal: Constipation Musculoskeletal: leg pain Objective Vitals Vital Signs Date Time Temp Pulse Resp B/P (MAP) Pulse Ox O2 Delivery O2 Flow Rate FiO2 06/28/25 09:51 86 20 143/98 06/28/25 09:00 97.8 97 97.8 06/27/25 20:00 Room Air* 0 21 Intake/Output Intake and Output 06/28/25 07:00 Intake Total 1670 ml Output Total 1510 ml Balance 160 ml Intake Oral 1670 ml Output Urine Total 1510 ml Medications Current Medications Medications Dose Ordered Sig/Romeo Route Start Time Stop Time Status Last Admin Dose Admin Sodium Chloride 1,000 ml @ 60 mls/hr [id number] IV 06/25/25 16:45 06/27/25 18:30 60 MLS/HR Ondansetron HCl 4 mg Q4HP PRN IV 06/25/25 16:45 Acetaminophen 650 mg Q6HP PRN PO 06/25/25 16:45 06/26/25 12:20 650 MG Apixaban 5 mg BID PO 06/25/25 22:00 06/28/25 09:25 5 MG Docusate Sodium 100 mg BID PO 06/26/25 10:00 06/28/25 09:25 100 MG Polyethylene Glycol 17 gm DAILYPRN PRN PO 06/27/25 10:00 Hydromorphone HCl 2 mg Q4HPRN PRN IV 06/26/25 13:45 06/28/25 09:51 2 MG Ceftriaxone Sodium 50 ml @ 100 mls/hr DAILY@09 IV 06/27/25 09:00 06/28/25 09:25 100 MLS/HR Azithromycin 250 ml @ 125 mls/hr DAILY IV 06/27/25 10:00 06/27/25 10:25 125 MLS/HR Laboratory Results Laboratory Tests 06/26/25 05:22 Urinalysis Test 06/25/25 14:57 Urine Color Yellow (Yellow) Urine Clarity Clear (Clear) Urine pH 6.0 (5.0-9.0) Urine Specific [place] 1.027 (1.001-1.035) Urine Protein Trace (Negative) H Urine Ketones 1+ (Negative) H Urine Blood Trace /uL (Negative) H Urine Nitrite Negative (Negative) Urine Bilirubin Negative (Negative) Urine Urobilinogen 2 mg/dL (Negative) H Urine Leukocyte Esterase Negative /uL (Negative) Urine RBC 23 /hpf (0 - 3) Urine Microscopic WBC 1 /HPF (0-3) Urine Squamous Epithelial Cells None seen /hpf (<5) Urine Bacteria Few /hpf (None Seen) H Urine Mucus Few (None Seen) Urine Sperm Present /hpf (None Seen) Urine Glucose Normal mg/dL (Normal) Labs and/or images reviewed: Labs reviewed by me, Image(s) reviewed by me Assessment/Plan Assessment/Plan Acute generalized weakness History of lung cancer diagnosed two weeks ago at [facility] being treated at [facility] Acute on chronic back pain: CT LS spine shows extensive Mets L4 T5 S1 spanning the symptoms of bilateral lower extremity pain weakness and numbness CT chest abdomen pelvis without shows left lower lobe pneumonia and mild pleural effusion Rocephin and azithromycin IV AFib On Eliquis Acute urinary retention: Mcconnell Constipation: MiraLax Flu Test negative COVID test negative Physical therapy ordered Needs wheelchair at the time of discharge Time spent 50 minutes Advanced care planning time 20 minutes Patient is full code Plan discussed with: Patient Date of Service: Jun 28, 2025 Billing Provider: MONICA VICENTE MD Common Visit Codes: [id number] INP/OBS CARE(HIGH) MONICA VICENTE MD Jun 28, 2025 10:36
[2025-06-28] MEDS ORDERED: HYDR-4902 PO (10:57)
[2025-06-28] MEDS ORDERED: AZIT500T66 PO (10:57)
--- NOTE | 2025-06-28 11:02 | DVHDS2 ---
Discharge Summary Date of Admission Jun 25, 2025 at 16:44 Date of Discharge: Jun 28, 2025 Admitting Diagnosis Shortness of breath and cough Wounds: None Labs/Diagnostic Data: Laboratory Results Test 06/26/25 05:22 06/25/25 18:51 06/25/25 14:57 06/25/25 11:38 White Blood Count 8.4 10^3/uL (4.4-10.8) Red Blood Count 4.56 10^6/uL (4.5-5.90) Hemoglobin 13.0 g/dL (13.5-17.5) Hematocrit 37.6 % (41.0-53.0) Mean Corpuscular Volume 82.5 fL (80.0-100.0) Mean Corpuscular Hemoglobin 28.5 pg (28.0-32.0) Mean Corpuscular Hemoglobin Concent 34.5 g/dL (32.0-36.0) Red Cell Distribution Width 15.1 % (11.8-14.3) Platelet Count 316 10^3/uL (140-450) Mean Platelet Volume 7.8 fL (6.9-10.8) Neutrophils (%) (Auto) 74.4 % (37.0-80.0) Lymphocytes (%) (Auto) 11.5 % (10.0-50.0) Monocytes (%) (Auto) 9.5 % (0.0-12.0) Eosinophils (%) (Auto) 4.3 % (0.0-7.0) Basophils (%) (Auto) 0.3 % (0.0-2.0) Neutrophils # (Auto) 6.3 10 ^3/uL (1.6-8.6) Lymphocytes # (Auto) 1.0 10 ^3/uL (0.4-5.4) Monocytes # (Auto) 0.8 10 ^3/uL (0-1.3) Eosinophils # (Auto) 0.4 10 ^3/uL (0-0.8) Basophils # (Auto) 0 10 ^3/uL (0-0.2) Nucleated Red Blood Cells 0.0 % Sodium Level 136 mmol/L (136-145) Potassium Level 4.0 mmol/L (3.5-5.1) Chloride Level 103 mmol/L (98-107) Carbon Dioxide Level 26 mmol/L (20-31) Anion Gap 7 (5-15) Blood Urea Nitrogen 13 mg/dL (9-23) Creatinine 0.56 mg/dL (0.700-1.30) Glomerular Filtration Rate Calc 100 mL/min (>90) BUN/Creatinine Ratio 23.2 (10.0-20.0) Serum Glucose 89 mg/dL (74-106) Calcium Level 8.5 mg/dL (8.7-10.4) Total Bilirubin 0.9 mg/dL (0.2-1.0) Aspartate Amino Transferase (AST) 18 U/L (13-40) Alanine Aminotransferase (ALT) 16 U/L (7-40) Alkaline Phosphatase 145 U/L (46-116) Total Protein 6.1 g/dL (5.7-8.2) Albumin 3.5 g/dL (3.2-4.8) Influenza Type A Antigen Negative (Negative) Influenza Type B Antigen Negative (Negative) SARS-CoV-2 Antigen (Rapid) Negative (NEGATIVE) Urine Color Yellow (Yellow) Urine Clarity Clear (Clear) Urine pH 6.0 (5.0-9.0) Urine Specific [place] 1.027 (1.001-1.035) Urine Protein Trace (Negative) Urine Ketones 1+ (Negative) Urine Blood Trace /uL (Negative) Urine Nitrite Negative (Negative) Urine Bilirubin Negative (Negative) Urine Urobilinogen 2 mg/dL (Negative) Urine Leukocyte Esterase Negative /uL (Negative) Urine RBC 23 /hpf (0 - 3) Urine Microscopic WBC 1 /HPF (0-3) Urine Squamous Epithelial Cells None seen /hpf (<5) Urine Bacteria Few /hpf (None Seen) Urine Mucus Few (None Seen) Urine Sperm Present /hpf (None Seen) Urine Glucose Normal mg/dL (Normal) Magnesium Level 2.2 mg/dL (1.6-2.6) Other Laboratory Tests 06/26/25 05:22 Brief Hx & Hospital Course: 79-year-old male with a history of AFib on Eliquis diagnosed with a lung cancer two weeks ago at [facility] being treated at [facility] came in complaining of generalized weakness and weakness of bilateral lower extremities. CT LS spine showed extensive Mets to the L4 and five and S1 accounting for the symptoms of bilateral lower extremity weakness and pain and numbness. Patient was treated with the pain medication. CT chest abdomen pelvis without contrast showed left lower lobe pneumonia with a mild pleural effusion treated with Rocephin and azithromycin IV acute urinary retention relieved by Mcconnell constipation was relieved by MiraLax flu test negative COVID test negative Per patient he has an appointment [facility] on 07/01/2025 four lung cancer treatment. Being discharged home. Wheelchair ordered Physical therapy ordered home health arranged prescription for azithromycin and [place] transmitted to the pharmacy. He has a advised to keep his appointment with [facility] General condition stable but poor at the time of discharge Consults/Reason for consult None Operations or Procedures CT chest abdomen pelvis without contrast Condition at Discharge: Fair Final Diagnosis/Problems List Acute generalized weakness History of lung cancer diagnosed two weeks ago at [facility] being treated at [facility] Acute on chronic back pain: CT LS spine shows extensive Mets L4 T5 S1 spanning the symptoms of bilateral lower extremity pain weakness and numbness CT chest abdomen pelvis without shows left lower lobe pneumonia and mild pleural effusion Rocephin and azithromycin IV AFib On Eliquis Acute urinary retention: Mcconnell Constipation: MiraLax Flu Test negative COVID test negative Discharge Disposition: Home with Health Services Discharge Instruct/Medications Diet: Cardiac 2g Na,low cholest Activity: Light activity Follow Up/Referral: Keep your appointment at [facility] on 07/01/2025 Resume all previous home medications Medications: Azithromycin [place] Transmitted to [facility] pharmacy Scheduled Apixaban Base (Eliquis), 1 TAB PO BID, (Reported) Azithromycin (Azithromycin), 1 TAB PO DAILY Hydromorphone Hcl (Hydromorphone Hcl), 1 TAB PO QID, (Reported) Scheduled PRN Hydrocodone-Acetaminophen (Hydrocodone Bitartrate/AC 5-325 mg), 1 TAB PO QID PRN 39 (Time taken for discharge summary 39 minutes) Discharge Statement: "Patient was advised to return to the ER or call 911 if any headaches, dizziness, shortness of breath, chest pain, abdominal pain, bleeding, fevers, or worsening of medical condition. Patient was counseled about treatment plan, medications, possible side effects, patientverbalized understanding. All questions were answered to the best of my ability. This discharge took greater then 30 minutes in planning, reviewing documentation, counseling the patient, and discussing with other team members." DME: Diagnosis: Generalized weakness secondary to cancer ASSESSMENT ASSESSMENT Hospital Course Uneventful Assessment Acute generalized weakness History of lung cancer diagnosed two weeks ago at [facility] being treated at [facility] Acute on chronic back pain: CT LS spine shows extensive Mets L4 T5 S1 spanning the symptoms of bilateral lower extremity pain weakness and numbness CT chest abdomen pelvis without shows left lower lobe pneumonia and mild pleural effusion Rocephin and azithromycin IV AFib On Eliquis Acute urinary retention: Mcconnell Constipation: MiraLax Flu Test negative COVID test negative Date of Service: Jun 28, 2025 Billing Provider: MONICA VICENTE MD Common Visit Codes: [id number] DISCH DAY >30min MONICA VICENTE MD Jun 28, 2025 11:02
== END 2025-06-28 17:20 | disposition home health service (06) | DRG 388 ==
LOC: ER 09:04 → EDBD 09:04 → OVERFLOW 16:44 → CENTRAL 22:00
PROVIDERS: ADMIT Family Medicine; ATTEND Family Medicine
DX: K56.41 Fecal impaction (principal); J15.69 Pneumonia due to other Gram-negative bacteria; J15.9 Unspecified bacterial pneumonia; J90 Pleural effusion, not elsewhere classified; C79.51 Secondary malignant neoplasm of bone; C34.90 Malignant neoplasm of unspecified part of unspecified bronchus or lung; Z79.01 Long term (current) use of anticoagulants; I48.91 Unspecified atrial fibrillation; Z20.822 Contact with and (suspected) exposure to COVID-19; R74.01 Elevation of levels of liver transaminase levels; R33.9 Retention of urine, unspecified; Z90.49 Acquired absence of other specified parts of digestive tract; G89.3 Neoplasm related pain (acute) (chronic)
CPT/HCPCS: 36415; 70450; 71045; 71250; 72131; 74018; 74176; 80053; 81001; 83735; 85025; 87426; 87804; 93005; 93970; 96361; 96374; 96375; 97163; G0378; J2405